=== PATIENT | male | born 1945 | race Caucasian/White ===

== ENCOUNTER 2016-11-20 11:15 | Outpatient (RCR) | payer MEDICARE, BC ==
[~2016-11-20 11:15] MED LIST: BALSALAZIDE DI750 MG PO; IRON65 MG PO; LEVAQUIN 5500 MG/TA1 PO; MULTIPLE VITAMI1 CAP PO; NO HOME MEDICATIONS; PREDNISONE20 MG PO; PROBIOTIC FORMU1 CAP PO; RITE AID TURME500 MG PO; SUPER B COMPLEX1 TA2 PO; ZITHROMAX 250M250 MG PO
== END 2017-01-20 | disposition home or self-care (01) ==
LOC: WSST
DX: F02.80 Dementia in other diseases classified elsewhere, unspecified severity, without behavioral disturbance, psychotic disturbance, mood disturbance, and anxiety (principal); G30.1 Alzheimer's disease with late onset; R41.3 Other amnesia
CPT/HCPCS: G9168-GN; G9169-GN

== ENCOUNTER → 2017-01-01 | Outpatient (CLI) | payer MEDICARE, BC | LOC: COL.RAD 08:00 | DX: K51.90 Ulcerative colitis, unspecified, without complications (principal); K57.90 Diverticulosis of intestine, part unspecified, without perforation or abscess without bleeding; R10.84 Generalized abdominal pain ==